=== PATIENT | male | born 1970 | race Caucasian/White ===

== ENCOUNTER 2017-06-29 19:02 | Emergency (ER) ==
[2017-06-29 19:05] VITALS: BP 144/77; BMI 29.2
--- NOTE | 2017-06-29 19:41 | ED.PDOC ---
General ED Provider: Dr. SAHARA HSIEH Chief Complaint: Respiratory Complaint Stated Complaint: patient is a 47 year old male who comes to the ER with c/o cough, fever, chills and weakness. states cough is occasionally prod of thick green phlegm. states throat is a little sore. c/o bodyaches. Time Seen by Physician: 19:34 Mode of Arrival: Walk-In Information Source: Patient Primary Care Provider: DEWAYNE PLASENCIA Nursing and Triage Documentation Reviewed and Agree: Yes Reviewed sepsis parameters & appropriate labs ordered?: Yes System Inflammatory Response Syndrome: Temp 101F or Greater, Pulse >90 BPM Sepsis Protocol: For patient's 13 years and over: Temp is 96.8 and below OR 101 and greater Pulse >90 BPM Resp >20/minute Acutely Altered Mental Status Are patient's symptoms suggestive of a new infection, such as: -Pneumonia -Skin, Soft Tissue -Endocarditis -UTI -Bone, Joint Infection -Implantable Device -Acute Abdominal Infection -Wound Infection -Meningitis -Blood Stream Catheter Infection -Unknown System Inflammatory Response Syndrome: Not Applicable Respiratory Complaint Exam - Respiratory Complaint/Exam Onset/Duration: 5 days Symptoms Are: Still present Timing: Constant Initial Severity: Mild Current Severity: Moderate Location: Chest Character: Reports: Productive cough Aggravating: Reports: URI, Weather Alleviating: Reports: None Associated Signs and Symptoms: Reports: Fever, Chills, URI, Sore throat, Increased thirst. Denies: Chest pain Related Surgical History: Reports: None Pulmonary Embolism Risk Factors: None Cardiac Risk Factors: Reports: None Pseudomonas Risk Factors: Reports: None Tuberculosis Risk Factors: Reports: None Status Asthmaticus Risk Factors: Reports: None Recent Stress Test: No Recent Echo/LV Function: No Current Antibiotic Use: No Current Asthma Medication Use: No Respiratory Distress: None Inadequate Respiratory Effort: No Dysphagia Present: No Stridor Present: No JVD Present: No Accessory Muscle Use: No Grunting Respirations: No Kussmaul Respirations: No Differential Diagnoses: Pneumonia, Bronchitis, Influenza Review of Systems - Review Of Systems Constitutional: Reports: Chills, Fever, Sweats, Loss of appetite Eyes: Reports: No symptoms Ears, Nose, Mouth, Throat: Reports: No symptoms Respiratory: Reports: Cough Cardiac: Reports: Lightheadedness GI: Reports: No symptoms : Reports: No symptoms Musculoskeletal: Reports: No symptoms Skin: Reports: No symptoms Neurological: Reports: No symptoms Endocrine: Reports: No symptoms Hematologic/Lymphatic: Reports: No symptoms All Other Systems: Reviewed and Negative Past Medical History - Past Medical History Previously Healthy: No Endocrine: Reports: Dyslipidemia Cardiovascular: Reports: Hypertension Respiratory: Reports: None Hematological: Reports: None Gastrointestinal: Reports: None Genitourinary: Reports: None Neuro/Psych: Reports: None Musculoskeletal: Reports: Arthritis Cancer: Reports: None - Surgical History General Surgical History: Reports: Orthopedic (right toe amputation), Hernia Repair (left ) - Family History Family History: Reports: None - Social History Smoking Status: Never smoker, Chews tobacco Hx Substance Use: No Alcohol Screening: Occasionally Physical Exam - Physical Exam Appearance: Ill-appearing Ill-appearing: Moderate Pain Distress: Mild Eyes: GIBSON, EOMI, Conjunctiva clear ENT: Ears normal, Nose normal, Oropharynx normal Neck: Supple Respiratory: Breath sounds diminished Cardiovascular: Tachycardia GI/: Soft Neurological: Sensation intact, Motor intact, Alert, Oriented Psychiatric: Anxious Interpretation - Radiology Interpretation Radiology Interpretation By: Radiologist Radiology Results: Negative Exam Interpreted: CXR Critical Care Note - Critical Care Note Total Time (mins): 0 Comments: Declined to get IV Fluids and get strep test. Course - Course Hematology/Chemistry: 06/29/17 19:52 06/29/17 19:52 Orders, Labs, Meds: Lab Review 06/29/17 06/29/17 06/29/17 19:50 19:52 19:52 WBC 13.17 H RBC 4.54 L Hgb 13.5 L Hct 38.1 L MCV 83.9 MCH 29.7 MCHC 35.4 RDW Coeff of Marybeth 13.0 Plt Count 231 Immature Gran % (Auto) 0.3 Neut % (Auto) 79.0 Lymph % (Auto) 12.0 [place] % (Auto) 6.2 Eos % (Auto) 2.2 Baso % (Auto) 0.3 Immature Gran # (Auto) 0.0 Neut # (Auto) 10.4 H Lymph # (Auto) 1.6 [place] # (Auto) 0.8 Eos # (Auto) 0.3 Baso # (Auto) 0.0 Sodium 136 Potassium 4.1 Chloride 101 Carbon Dioxide 19 L Anion Gap 20.1 BUN 18 Creatinine 1.12 H Estimated GFR (MDRD) 71.00 BUN/Creatinine Ratio 16.07 Glucose 97 Lactic Acid Calcium 9.4 Total Bilirubin 0.5 AST 39 H ALT 83 H Alkaline Phosphatase 60 Total Protein 7.5 Albumin 4.3 Globulin 3.2 Albumin/Globulin Ratio 1.34 Procalcitonin Influ A Molecular Assay Negative by naat Influ B Molecular Assay Negative by naat 06/29/17 06/29/17 19:52 19:52 WBC RBC Hgb Hct MCV MCH MCHC RDW Coeff of Marybeth Plt Count Immature Gran % (Auto) Neut % (Auto) Lymph % (Auto) [place] % (Auto) Eos % (Auto) Baso % (Auto) Immature Gran # (Auto) Neut # (Auto) Lymph # (Auto) [place] # (Auto) Eos # (Auto) Baso # (Auto) Sodium Potassium Chloride Carbon Dioxide Anion Gap BUN Creatinine Estimated GFR (MDRD) BUN/Creatinine Ratio Glucose Lactic Acid 16.0 Calcium Total Bilirubin AST ALT Alkaline Phosphatase Total Protein Albumin Globulin Albumin/Globulin Ratio Procalcitonin 0.25 Influ A Molecular Assay Influ B Molecular Assay Orders Category Date Time Status ED IV/MEDIPORT/POWERPORT .ONCE EMERGENCY 06/29/17 19:44 Active BLOOD CULTURE (ED ONLY) Stat LAB 06/29/17 19:52 Received CBC W/ AUTO DIFF Stat LAB 06/29/17 19:52 Completed COMPREHENSIVE METABOLIC PANEL Stat LAB 06/29/17 19:52 Completed FLU A/B MOLECULAR Stat LAB 06/29/17 19:50 Completed LACTIC ACID Stat LAB 06/29/17 19:52 Completed PROCALCITONIN Stat LAB 06/29/17 19:52 Completed 0.9 % Sodium Chloride [Saline Flush] MEDS 06/29/17 19:44 Discontinued 1 syr IVF PRN PRN Acetaminophen [Tylenol] MEDS 06/29/17 19:44 Discontinued 650 mg PO ONCE STA Ceftriaxone Sodium [Rocephin] MEDS 06/29/17 20:50 Discontinued 1 gm IM ONCE STA Lidocaine HCl/Pf [Lidocaine HCl 1% Sdv] MEDS 06/29/17 20:50 Discontinued 2.1 ml IM ONCE STA Methylprednisolone Sod Succ/Pf [Solu-Medrol 125 mg] MEDS 06/29/17 20:47 Discontinued 125 mg IM ONCE STA Sodium Chloride 0.9% [Sodium Chloride] 1,000 ml MEDS 06/29/17 19:42 Discontinued IV BOLUS CHEST, 2 VIEWS PA & LAT Stat RADS 06/29/17 19:36 Completed Medications Discontinued Medications Generic Name Dose Route Start Last Admin Trade Name Shana PRN Reason Stop Dose Admin Acetaminophen 650 mg 06/29/17 19:44 06/29/17 20:31 Tylenol PO 06/29/17 19:45 650 mg ONCE STA Administration Ceftriaxone Sodium 1 gm 06/29/17 20:50 06/29/17 21:04 Rocephin IM 06/29/17 20:51 1 gm ONCE STA Administration Sodium Chloride 1,000 mls @ 1,000 mls/hr 06/29/17 19:42 Sodium Chloride IV 06/29/17 20:41 BOLUS STA Lidocaine HCl 2.1 ml 06/29/17 20:50 06/29/17 21:04 Lidocaine Hcl 1% Sdv IM 06/29/17 20:51 2.1 ml ONCE STA Administration Methylprednisolone Sodium Succinate 125 mg 06/29/17 20:47 06/29/17 21:04 Solu-Medrol 125 Mg IM 06/29/17 20:48 125 mg ONCE STA Administration Sodium Chloride 1 syr 06/29/17 19:44 Saline Flush IVF PRN PRN To flush IV Vital Signs: Temp Pulse Resp BP Pulse Ox 06/29/17 20:52 100.8 F H 06/29/17 19:03 101.2 F H 107 H 16 144/77 H 95 Departure - Departure Time of Disposition: 21:30 Disposition: HOME SELF-CARE Discharge Problem: Bronchitis Instructions: Acute Bronchitis (ED) Condition: Stable Pt referred to PMD for follow-up: Yes IPMP verified?: No Additional Instructions: Take Medication as prescribed Follow up with PCP iin 3 days Prescriptions: Amoxicillin/Potassium Clav [Augmentin 875-125 mg Tab] 1 tab PO Q12HR #20 tablet Benzonatate [Tessalon Perles] 100 mg PO TID PRN #15 capsule PRN Reason: Cough Methylprednisolone [Medrol Dosepak] 4 mg PO DIRECTED #1 pkg Allergies/Adverse Reactions: Allergies No Known Allergies Allergy (Verified 06/29/17 19:05) Home Medications: Ambulatory Orders Multivitamin 1 each PO DAILY 01/08/14 Lisinopril 20 mg PO DAILY 09/25/15 Amoxicillin/Potassium Clav [Augmentin 875-125 mg Tab] 1 tab PO Q12HR #20 tablet 06/29/17 Benzonatate [Tessalon Perles] 100 mg PO TID PRN #15 capsule 06/29/17 Cetirizine HCl [Zyrtec] 10 mg PO DAILY 06/29/17 Hydrocodone Bit/Acetaminophen [[place] 7.5-325] 1 tab PO TID 06/29/17 Methylprednisolone [Medrol Dosepak] 4 mg PO DIRECTED #1 pkg 06/29/17 Disposition Discussed With: Patient, Family
[2017-06-29] MEDS ORDERED: SODIUM CHLORIDE 1,000 ML IV STA (19:42)
[2017-06-29] MEDS ORDERED: TYLENOL PO STA (19:44)
--- NOTE | 2017-06-29 19:53 | DI ---
Exam: Two x-rays of the chest. Comparison: 09/25/2015 Reason for exam: Cough. FINDINGS: No pneumothorax, pleural effusion, or focal consolidation. The cardiac silhouette is not enlarged. The imaged osseous structures appear grossly unremarkable without acute fracture. Impression: No acute cardiopulmonary process.
[2017-06-29] MEDS ORDERED: SOLU-MEDROL 125 MG IM STA (20:47)
[2017-06-29] MEDS ORDERED: LIDOCAINE HCL 1% SDV IM STA (20:50)
[2017-06-29] MEDS ORDERED: ROCEPHIN IM STA (20:50)
[2017-06-29 20:53] VITALS: TEMP 100.8
== END 2017-06-29 21:22 | disposition home or self-care (01) ==
LOC: ED 19:02
DX: J40 Bronchitis, not specified as acute or chronic (principal); Z72.0 Tobacco use
CPT/HCPCS: 36415; 80053; 83605; 84145; 85025; 87040; 87502; 96372; 99283

== ENCOUNTER 2017-07-24 18:19 | Emergency (ER) ==
[2017-07-24 18:24] VITALS: TEMP 97.6; BMI 29.9
[2017-07-24 18:53] VITALS: BP 118/73
[2017-07-24] MEDS ORDERED: ASPIRIN CHEWABLE PO STA (19:28)
--- NOTE | 2017-07-24 19:32 | ED.PDOC ---
General ED Provider: Dr. WAQAR CLEIS Chief Complaint: Chest Pain Stated Complaint: came for the left side chest discomfort, since morning, whole left side of the body is hurting. not short of breath, not exertional. Time Seen by Physician: 19:30 Mode of Arrival: Walk-In Information Source: Patient Primary Care Provider: DEWAYNE PLASENCIA Nursing and Triage Documentation Reviewed and Agree: Yes Reviewed sepsis parameters & appropriate labs ordered?: No System Inflammatory Response Syndrome: Not Applicable Sepsis Protocol: For patient's 13 years and over: Temp is 96.8 and below OR 101 and greater Pulse >90 BPM Resp >20/minute Acutely Altered Mental Status Are patient's symptoms suggestive of a new infection, such as: -Pneumonia -Skin, Soft Tissue -Endocarditis -UTI -Bone, Joint Infection -Implantable Device -Acute Abdominal Infection -Wound Infection -Meningitis -Blood Stream Catheter Infection -Unknown Cardiovascular Complaint Exam - Chest Pain Complaint/Exam Onset: Gradual Symptoms Are: Resolved Timing: Intermittent Initial Severity: Moderate Current Severity: None Location: Reports: Left anterior Pain Radiates: Reports: None Character: Reports: Dull, Aching Aggravating: Reports: None Alleviating: Reports: None Associated Signs and Symptoms: Reports: Nausea. Denies: Diaphoresis, Vomiting, Fever, Palpitations, Cough, Hemoptysis, Back pain, Abdominal pain, Dizziness, Short of air, Calf pain, Calf swelling Related Surgical History: Reports: None History of Healthcare-Acquired Pneumonia: Reports: No AMI/ACS Risk Factors: Reports: None TAD Risk Factors: Reports: Hypertension, Family history Pulmonary Embolism Risk Factors: Reports: None Prior Care for this Complaint: No Recent Stress Test: No Recent Echo/LV Function: No JVD Present: No Subcutaneous Emphysema Present: No Diminshed Breath Sounds: No Reproducible Chest Wall Pain: No Bilateral Pulses Present: No Unequal Pulses Noted: No If Risk Factors for AMI/ACS Consider: EKG, Cardiac Enzymes, Serial Studies, Oxygen, Aspirin Differential Diagnoses: ACS, Chest Wall Pain, GI Diseasae Quality Indicators For Acute NM or Cardiac Chest Pain: EKG in 10min., ASA if indicated Review of Systems - Review Of Systems Constitutional: Reports: No symptoms Eyes: Reports: No symptoms Ears, Nose, Mouth, Throat: Reports: No symptoms Respiratory: Reports: No symptoms Cardiac: Reports: Chest pain GI: Reports: No symptoms : Reports: No symptoms Musculoskeletal: Reports: No symptoms Skin: Reports: No symptoms Neurological: Reports: No symptoms Endocrine: Reports: No symptoms Hematologic/Lymphatic: Reports: No symptoms All Other Systems: Reviewed and Negative Past Medical History - Past Medical History Previously Healthy: No Endocrine: Reports: Dyslipidemia Cardiovascular: Reports: Hypertension Respiratory: Reports: None Hematological: Reports: None Gastrointestinal: Reports: None Genitourinary: Reports: None Neuro/Psych: Reports: None Musculoskeletal: Reports: Arthritis Cancer: Reports: Skin (melanoma) - Surgical History General Surgical History: Reports: Orthopedic (right toe amputation), Hernia Repair (left ) - Family History Family History: Reports: None - Social History Smoking Status: Never smoker, Chews tobacco Hx Substance Use: Yes (QUIT DRINKING FOR 2 MONTHS) Alcohol Screening: None Physical Exam - Physical Exam Appearance: Well-appearing, No pain distress, Well-nourished Eyes: GIBSON, EOMI, Conjunctiva clear ENT: Ears normal, Nose normal, Oropharynx normal Respiratory: Airway patent, Breath sounds clear, Breath sounds equal, Respirations nonlabored Cardiovascular: RRR, Pulses normal, No rub, No murmur GI/: Soft, Nontender, No masses, Bowel sounds normal, No Organomegaly Musculoskeletal: Normal strength, ROM intact, No edema, No calf tenderness Skin: Warm, Dry, Normal color Neurological: Sensation intact, Motor intact, Reflexes intact, Cranial nerves intact, Alert, Oriented Psychiatric: Affect appropriate, Mood appropriate Interpretation - Radiology Interpretation Radiology Interpretation By: ED Physician Radiology Results: Negative Exam Interpreted: CXR - Medical Coding Technician Time of Medical Coding Technician Interpretation: 20:00 Rate: Normal Rhythm: Sinus Ectopy: None Critical Care Note - Critical Care Note Total Time (mins): 30 Course - Course Hematology/Chemistry: 07/24/17 18:44 07/24/17 18:44 Orders, Labs, Meds: Lab Review 07/24/17 07/24/17 18:44 18:44 WBC 8.11 RBC 4.45 L Hgb 13.1 L Hct 37.9 L MCV 85.2 MCH 29.4 MCHC 34.6 RDW Coeff of Marybeth 13.1 Plt Count 275 Immature Gran % (Auto) 0.2 Neut % (Auto) 52.1 Lymph % (Auto) 36.5 [place] % (Auto) 7.2 Eos % (Auto) 3.3 Baso % (Auto) 0.7 Immature Gran # (Auto) 0.0 Neut # (Auto) 4.2 Lymph # (Auto) 3.0 [place] # (Auto) 0.6 Eos # (Auto) 0.3 Baso # (Auto) 0.1 Sodium 139 Potassium 4.0 Chloride 104 Carbon Dioxide 20 L Anion Gap 19.0 BUN 17 Creatinine 1.06 Estimated GFR (MDRD) 75.00 BUN/Creatinine Ratio 16.03 Glucose 93 Calcium 9.7 Total Bilirubin 0.4 AST 42 H ALT 94 H Alkaline Phosphatase 52 Total Creatine Kinase 287 CK-MB (CK-2) 2.0 CK-MB (CK-2) % 0.99187 Troponin I < 0.0100 Total Protein 7.6 Albumin 4.5 Globulin 3.1 Albumin/Globulin Ratio 1.45 Orders Category Date Time Status EKG-(ED ONLY) Stat CARDIO 07/24/17 18:49 Completed CBC W/ AUTO DIFF Stat LAB 07/24/17 18:44 Completed COMPREHENSIVE METABOLIC PANEL Stat LAB 07/24/17 18:44 Completed CREATINE KINASE Stat LAB 07/24/17 18:44 Completed TROPONIN I Stat LAB 07/24/17 18:44 Completed Aspirin [Aspirin Chewable] MEDS 07/24/17 19:28 Discontinued 324 mg PO ONCE STA Dexamethasone 4 mg/ml Inj [Decadron 4 mg/ml Sdv] MEDS 07/24/17 20:32 Discontinued 4 mg IM ONCE STA CHEST, 2 VIEWS PA & LAT Stat RADS 07/24/17 19:28 Taken Medications Discontinued Medications Generic Name Dose Route Start Last Admin Trade Name Freq PRN Reason Stop Dose Admin Aspirin 324 mg 07/24/17 19:28 07/24/17 19:45 Aspirin Chewable PO 07/24/17 19:29 324 mg ONCE STA Administration Dexamethasone Sodium Phosphate 4 mg 07/24/17 20:32 Decadron 4 Mg/Ml Sdv IM 07/24/17 20:33 ONCE STA Vital Signs: Temp Pulse Resp BP Pulse Ox 07/24/17 18:53 75 20 118/73 98 07/24/17 18:21 97.6 F 81 20 123/88 97 DELFINA Risk Score Age >/= 65: No >/= 3 CAD Risk Factors: Yes Known CAD (Stenosis >/= 50%): No ASA Use in Past 7 Days: No Severe Angina (>/= 2 episodes in 24 hours): No EKG ST Changes >/= 0.5mm: No Postive Cardiac Marker: No DELFINA Total Score: 1 DELFINA Risk Score: Risk Score Odds of by 30D 0 0.1 (0.1-0.2) 1 0.3 (0.2-0.3) 2 0.4 (0.3-0.5) 3 0.7 (0.6-0.9) 4 1.2 (1.0-1.5) 5 2.2 (1.9-2.6) 6 3.0 (2.5-3.6) 7 4.8 (3.8-6.1) Departure - Departure Time of Disposition: 20:33 Disposition: HOME SELF-CARE Discharge Problem: Chest pain Instructions: Chest Pain (ED) Condition: Stable Pt referred to PMD for follow-up: Yes IPMP verified?: No Additional Instructions: life style modifications f/u with PMD for further evaluation Allergies/Adverse Reactions: Allergies No Known Allergies Allergy (Verified 07/24/17 18:25) Home Medications: Ambulatory Orders Multivitamin 1 each PO DAILY 01/08/14 Lisinopril 20 mg PO DAILY 09/25/15 Cetirizine HCl [Zyrtec] 10 mg PO DAILY 06/29/17 Hydrocodone Bit/Acetaminophen [[place] 7.5-325] 1 tab PO TID 06/29/17 Transfer Form Completed: Yes
[2017-07-24] MEDS ORDERED: DECADRON 4 MG/ML SDV IM STA (20:32)
--- NOTE | 2017-07-25 07:43 | DI ---
EXAM: CHEST FRONTAL AND LATERAL VIEWS HISTORY: Chest pain. COMPARISON: 06/29/2017 FINDINGS: Heart size and mediastinal contour remain within normal limits. Heart size is normal. Q uestionable mild aortic atherosclerosis. A few micro nodules are seen in the lateral mid left lung w hich are most suggestive of calcified granulomas given their density. No acute infiltrates are seen. No vascular congestion. There is no consolidation, visible pleural fluid or pneumothorax. Bones re veal no acute fracture. IMPRESSION: No acute cardiopulmonary process.
== END 2017-07-24 20:46 | disposition home or self-care (01) ==
LOC: ED 18:19
DX: R07.9 Chest pain, unspecified (principal); E78.5 Hyperlipidemia, unspecified; I10 Essential (primary) hypertension; Z72.0 Tobacco use
CPT/HCPCS: 36415; 80053; 82550; 82553; 84484; 85025; 93005; 93010; 99283

== ENCOUNTER 2017-12-31 02:32 | Emergency (ER) ==
[2017-12-31 02:47] VITALS: BMI 28.8
[2017-12-31] MEDS ORDERED: LOMOTIL PO STA (03:27)
[2017-12-31] MEDS ORDERED: ZOFRAN ODT PO STA (03:27)
[2017-12-31] MEDS ORDERED: LACTATED RINGERS 1,000 ML IV STA (03:27)
[2017-12-31] MEDS ORDERED: DILAUDID 1 MG/ML SYRINGE IVP STA (03:34)
[2017-12-31] MEDS ORDERED: BENTYL IM STA (03:34)
--- NOTE | 2017-12-31 03:35 | ED.PDOC ---
General ED Provider: Dr. SAHARA HSIEH Chief Complaint: Abdominal Pain Stated Complaint: Patient complains of Diarrhea stools x 10 since last night. Also complains of dissuse abdominal pain and cramping x 3 days. Also had vomting x 2 tonight. Denies any blood in emesis and denies any Bright red blood per rectum. He was seen at [facility] for chest pain. has a history of back pain goes to pain managment and gets [place] 90 tabs every month. Time Seen by Physician: 03:28 Mode of Arrival: Walk-In Information Source: Patient Primary Care Provider: DEWAYNE PLASENCIA Nursing and Triage Documentation Reviewed and Agree: Yes Does patient meet sepsis criteria?: No System Inflammatory Response Syndrome: Not Applicable Sepsis Protocol: For patient's 13 years and over: Temp is 96.8 and below OR 101 and greater Pulse >90 BPM Resp >20/minute Acutely Altered Mental Status Are patient's symptoms suggestive of a new infection, such as: -Pneumonia -Skin, Soft Tissue -Endocarditis -UTI -Bone, Joint Infection -Implantable Device -Acute Abdominal Infection -Wound Infection -Meningitis -Blood Stream Catheter Infection -Unknown GI Complaint Exam - Vomiting/Diarrhea Complaint/Exam Onset/Duration: 3 days Symptoms Are: Still present Episodes of Vomiting over last 24 Hours: 10 Episodes of Diarrhea Over Last 24 Hours: 2 Initial Severity: Moderate Current Severity: Severe Character of Vomiting: Reports: Non-bilious Character of Diarrhea: Reports: Watery Aggravating: Reports: Food Alleviating: Reports: Clear liquids Associated Signs and Symptoms: Reports: Abdominal pain, Cramping Last Oral Intake: Just prior to arrival. Last Bowel Movement: During this visit Non-GI Risk Factors: Reports: None Surgical Obstruction Risk Factors: Reports: None Related Surgical History: Reports: None Abdominal Findings: Present: Other (Diffuse abdominal tenderness ). Absent: Rebound tenderness Kussmaul Respirations Present: No Differential Diagnoses: Bowel Obstruction, Cholecystitis, Cholelithiasis, Dehydration, Gastritis, PUD, Viral Gastroenteritis, Bacterial Gastroenteritis, Hepatitis, Pancreatitis, UTI Review of Systems - Review Of Systems Constitutional: Reports: No symptoms Eyes: Reports: No symptoms Ears, Nose, Mouth, Throat: Reports: No symptoms Respiratory: Reports: No symptoms Cardiac: Reports: No symptoms GI: Reports: Abdominal pain, Diarrhea, Nausea, Poor appetite, Vomiting : Reports: No symptoms Musculoskeletal: Reports: No symptoms Skin: Reports: No symptoms Neurological: Reports: No symptoms Endocrine: Reports: No symptoms Hematologic/Lymphatic: Reports: No symptoms All Other Systems: Reviewed and Negative Past Medical History - Past Medical History Previously Healthy: No Endocrine: Reports: Dyslipidemia Cardiovascular: Reports: Hypertension Respiratory: Reports: None Hematological: Reports: None Gastrointestinal: Reports: None Genitourinary: Reports: None Neuro/Psych: Reports: None Musculoskeletal: Reports: Arthritis, Back Pain Cancer: Reports: Skin (melanoma) - Surgical History General Surgical History: Reports: Orthopedic (right toe amputation), Hernia Repair (left ) - Family History Family History: Reports: None - Social History Smoking Status: Never smoker, Chews tobacco, Dips snuff Hx Substance Use: Yes Alcohol Screening: None - Immunizations Tetanus Shot up to Date: Yes Physical Exam - Physical Exam Appearance: Ill-appearing Ill-appearing: Moderate Pain Distress: Severe Neck: Supple Respiratory: Airway patent, Breath sounds clear, Breath sounds equal, Respirations nonlabored Cardiovascular: RRR, Pulses normal, No rub, No murmur GI/: Soft, Tender, Bowel sounds hyperactive Musculoskeletal: Normal strength, ROM intact, No edema, No calf tenderness Skin: Warm, Dry, Normal color Neurological: Sensation intact, Motor intact, Cranial nerves intact, Alert, Oriented Psychiatric: Anxious Interpretation - Radiology Interpretation Radiology Interpretation By: Radiologist Radiology Results: Negative (gastroenteritis vs ileus) Exam Interpreted: CT Scan Critical Care Note - Critical Care Note Total Time (mins): 30 Course - Course Hematology/Chemistry: 12/31/17 03:35 12/31/17 03:35 Orders, Labs, Meds: Lab Review 12/31/17 12/31/17 12/31/17 02:50 03:35 03:35 WBC 15.35 H RBC 4.77 Hgb 14.0 Hct 40.7 L MCV 85.3 MCH 29.4 MCHC 34.4 RDW Coeff of Marybeth 12.8 Plt Count 239 Immature Gran % (Auto) 0.8 Neut % (Auto) 55.5 Lymph % (Auto) 17.1 [place] % (Auto) 4.9 Eos % (Auto) 20.9 H Baso % (Auto) 0.8 Immature Gran # (Auto) 0.1 Neut # (Auto) 8.5 H Lymph # (Auto) 2.6 [place] # (Auto) 0.8 Eos # (Auto) 3.2 H Baso # (Auto) 0.1 Sodium 140.2 Potassium 4.50 Chloride 102.8 Carbon Dioxide 29.4 Anion Gap 12.50 BUN 19.0 Creatinine 1.16 H Estimated GFR (MDRD) 68.00 BUN/Creatinine Ratio 16.37 Glucose 92.6 Calcium 9.39 Total Bilirubin 0.22 AST 30.0 ALT 38.9 Alkaline Phosphatase 51.1 Total Protein 7.43 Albumin 4.27 Globulin 3.16 Albumin/Globulin Ratio 1.35 Amylase 59.6 Lipase 41.8 Urine Color Yellow Urine Clarity Clear Urine pH 5.5 Ur Specific [place] 1.015 Urine Protein Negative Urine Glucose (UA) Negative Urine Ketones Negative Urine Blood Negative Urine Nitrite Negative Urine Bilirubin Negative Urine Urobilinogen 0.2 Ur Leukocyte Esterase Negative Orders Category Date Time Status ED IV/MEDIPORT/POWERPORT .ONCE EMERGENCY 12/31/17 03:26 Active AMYLASE Stat LAB 12/31/17 03:35 Completed CBC W/ AUTO DIFF Stat LAB 12/31/17 03:35 Completed COMPREHENSIVE METABOLIC PANEL Stat LAB 12/31/17 03:35 Completed LIPASE Stat LAB 12/31/17 03:35 Completed STOOL CULTURE Stat LAB 12/31/17 02:50 Results URINALYSIS C & S IF INDICATED Stat LAB 12/31/17 02:50 Completed 0.9 % Sodium Chloride [Saline Flush] MEDS 12/31/17 03:26 Ordered 1 syr IVF PRN PRN Dicyclomine Inj [Bentyl] MEDS 12/31/17 03:34 Discontinued 20 mg IM ONCE STA Diphenoxylate HCl/Atropine [Lomotil] MEDS 12/31/17 03:27 Discontinued 1 tab PO ONCE STA Hydromorphone HCl [Dilaudid 1 mg/ml Syringe] MEDS 12/31/17 03:34 Discontinued 1 mg IVP ONCE STA Ondansetron [Zofran Odt] MEDS 12/31/17 03:27 Discontinued 4 mg PO ONCE STA Ringers Lactated Solution [Lactated Ringers] 1,000 ml MEDS 12/31/17 03:[address] ABD/PEL WO RENAL STONE PROT Stat RADS 12/31/17 03:35 Completed Medications Generic Name Dose Route Start Last Admin Trade Name Freq PRN Reason Stop Dose Admin Sodium Chloride 1 syr 12/31/17 03:26 Saline Flush IVF PRN PRN To flush IV Discontinued Medications Generic Name Dose Route Start Last Admin Trade Name Shana PRN Reason Stop Dose Admin Dicyclomine HCl 20 mg 12/31/17 03:34 12/31/17 03:57 Bentyl IM 12/31/17 03:35 20 mg ONCE STA Administration Diphenoxylate HCl/Atropine 1 tab 12/31/17 03:27 12/31/17 03:54 Lomotil PO 12/31/17 03:28 1 tab ONCE STA Administration Hydromorphone HCl 1 mg 12/31/17 03:34 12/31/17 03:48 Dilaudid 1 Mg/Ml Syringe IVP 12/31/17 03:35 1 mg ONCE STA Administration Lactated Ringer's 1,000 mls @ 1,000 mls/hr 12/31/17 03:27 12/31/17 03:45 Lactated Ringers IV 12/31/17 04:26 1,000 mls/hr BOLUS STA Administration Ondansetron HCl 4 mg 12/31/17 03:27 12/31/17 03:55 Zofran Odt PO 12/31/17 03:28 4 mg ONCE STA Administration Vital Signs: Temp Pulse Resp BP Pulse Ox 12/31/17 02:32 97.9 F 83 20 149/97 H 98 Departure - Departure Time of Disposition: 04:32 Disposition: HOME SELF-CARE Discharge Problem: Gastroenteritis and colitis, viral Instructions: Gastroenteritis (ED) Condition: Stable Pt referred to PMD for follow-up: Yes IPMP verified?: No Additional Instructions: Push fluids Take Medications as prescribed Follow up with PCP in 3 days. Prescriptions: Dicyclomine HCl [Bentyl] 10 mg PO TID PRN #20 capsule PRN Reason: Abdominal Pain Diphenoxylate HCl/Atropine [Lomotil 2.5-0.025 mg Tablet] 1 each PO TID PRN #20 tablet PRN Reason: Diarrhea Ondansetron HCl [Zofran Tab] 4 mg PO Q8H PRN #14 tablet PRN Reason: Nausea / Vomiting Allergies/Adverse Reactions: Allergies No Known Allergies Allergy (Verified 12/31/17 02:47) Home Medications: Ambulatory Orders Multivitamin 1 each PO DAILY 01/08/14 Lisinopril 20 mg PO DAILY 09/25/15 Hydrocodone Bit/Acetaminophen [[place] 7.5-325] 1 tab PO TID 06/29/17 Dicyclomine HCl [Bentyl] 10 mg PO TID PRN #20 capsule 12/31/17 Diphenoxylate HCl/Atropine [Lomotil 2.5-0.025 mg Tablet] 1 each PO TID PRN #20 tablet 12/31/17 Loratadine [Claritin] 10 mg PO DAILY 12/31/17 Ondansetron HCl [Zofran Tab] 4 mg PO Q8H PRN #14 tablet 12/31/17 Disposition Discussed With: Patient
--- NOTE | 2017-12-31 04:25 | CT ---
EXAM: CT scan abdomen pelvis without contrast HISTORY: Abdominal pain with diffuse cramping COMPARISON: None. FINDINGS: Contiguous axial images obtained through the abdomen pelvis without contrast utilizing 3-m m collimation. Sagittal and coronal reconstructions were imaged and reviewed.. There is calcified g ranuloma at the left lung base. The gallbladder is fluid filled without cholelithiasis. The liver, pancreas, spleen and adrenal glands have normal unenhanced CT appearance. The kidneys are morphologi max normal. Atherosclerotic changes are seen involving the aorta without aneurysm formation. Ther e is a small umbilical hernia containing only fat. The prostate gland is normal in size. The bladde r is unremarkable. There is a normal appendix. There are prominent air and fluid filled loops of sma ll bowel which may be related to ileus versus gastroenteritis.. Bone windows reveals no evidence of lytic or blastic lesions. IMPRESSION: Prominent small bowel suggestive of ileus versus gastroenteritis. Normal appendix. No free fluid or inflammatory changes. Small umbilical hernia containing only fat.
[2017-12-31 04:49] VITALS: BP 110/75; TEMP 98.4
== END 2017-12-31 04:52 | disposition home or self-care (01) ==
LOC: ED 02:32
DX: A08.4 Viral intestinal infection, unspecified (principal); Z72.0 Tobacco use
CPT/HCPCS: 36415; 74176; 80053; 81001; 82150; 83690; 85025; 87015; 87045; 87899; 96361; 96374; 99283

== ENCOUNTER 2018-07-04 14:38 | Emergency (ER) ==
[2018-07-04 14:38] VITALS: BMI 28.8
[2018-07-04 14:47] VITALS: BP 125/85; TEMP 98.2
--- NOTE | 2018-07-04 15:20 | ED.PDOC ---
General ED Provider: Dr. KHALIDA DUGGAN Chief Complaint: Chest Pain Stated Complaint: Chest pain; pain between shoulders Time Seen by Physician: 14:45 Mode of Arrival: Walk-In Information Source: Patient Primary Care Provider: DEWAYNE PLASENCIA Nursing and Triage Documentation Reviewed and Agree: Yes Does patient meet sepsis criteria?: No System Inflammatory Response Syndrome: Not Applicable Sepsis Protocol: For patient's 13 years and over: Temp is 96.8 and below OR 101 and greater Pulse >90 BPM Resp >20/minute Acutely Altered Mental Status Are patient's symptoms suggestive of a new infection, such as: -Pneumonia -Skin, Soft Tissue -Endocarditis -UTI -Bone, Joint Infection -Implantable Device -Acute Abdominal Infection -Wound Infection -Meningitis -Blood Stream Catheter Infection -Unknown Review of Systems - Review Of Systems Constitutional: Reports: Malaise Respiratory: Reports: No symptoms Cardiac: Reports: Chest pain GI: Reports: No symptoms : Reports: No symptoms Neurological: Reports: No symptoms All Other Systems: Reviewed and Negative Past Medical History - Past Medical History Previously Healthy: No Endocrine: Reports: Dyslipidemia Cardiovascular: Reports: Hypertension Respiratory: Reports: None Hematological: Reports: None Gastrointestinal: Reports: None Genitourinary: Reports: None Neuro/Psych: Reports: None Musculoskeletal: Reports: Arthritis, Back Pain Cancer: Reports: Skin (melanoma) - Surgical History General Surgical History: Reports: Orthopedic (right toe amputation), Hernia Repair (left ) - Family History Family History: Reports: None - Social History Smoking Status: Never smoker, Chews tobacco, Dips snuff Hx Substance Use: No Alcohol Screening: None - Immunizations Tetanus Shot up to Date: No Physical Exam - Physical Exam Appearance: Well-appearing, Well-nourished Pain Distress: Mild ENT: Oropharynx normal Neck: Supple Respiratory: Airway patent, Breath sounds clear, Breath sounds equal, Respirations nonlabored Cardiovascular: RRR, Pulses normal GI/: Soft, Nontender Musculoskeletal: Normal strength, ROM intact Skin: Warm, Dry, Normal color Neurological: Sensation intact, Motor intact, Alert, Oriented Psychiatric: Affect appropriate, Mood appropriate Interpretation - EKG Interpretation Time of EKG #1: 14:40 Rate: Normal Rhythm: Sinus Ectopy: None [place]: NL ST Segment: Normal Interpretation: No acute changes Critical Care Note - Critical Care Note Total Time (mins): 35 Comments: EKG, labs, history of cardiac findings, carotid findings, repeated similar episodes, discussion with Primary Care. Patient then refused transfer and declines alternative medical referrals. Course - Course Hematology/Chemistry: 07/04/18 14:45 07/04/18 14:45 Orders, Labs, Meds: Lab Review 07/04/18 07/04/18 07/04/18 14:45 14:45 14:45 WBC 12.81 H RBC 5.07 Hgb 14.8 Hct 43.4 MCV 85.6 MCH 29.2 MCHC 34.1 RDW Coeff of Marybeth 13.2 Plt Count 243 Immature Gran % (Auto) 0.4 Neut % (Auto) 83.9 Lymph % (Auto) 6.8 L [place] % (Auto) 5.8 Eos % (Auto) 2.7 Baso % (Auto) 0.4 Immature Gran # (Auto) 0.1 Neut # (Auto) 10.8 H Lymph # (Auto) 0.9 [place] # (Auto) 0.7 Eos # (Auto) 0.3 Baso # (Auto) 0.1 D-Dimer (Manual) 220.24 Sodium 139.0 Potassium 3.95 Chloride 99.5 Carbon Dioxide 27.2 Anion Gap 16.25 BUN 17.4 Creatinine 1.11 H Estimated GFR (MDRD) 71.00 BUN/Creatinine Ratio 15.67 Glucose 86.4 Calcium 9.60 Total Bilirubin 0.65 AST 37.2 ALT 50.5 H Alkaline Phosphatase 57.2 Troponin I < 0.012 Total Protein 7.91 Albumin 5.19 H Globulin 2.72 Albumin/Globulin Ratio 1.90 Orders Category Date Time Status EKG-(ED ONLY) Stat CARDIO 07/04/18 15:29 Completed CBC W/ AUTO DIFF Stat LAB 07/04/18 14:45 Completed COMPREHENSIVE METABOLIC PANEL Stat LAB 07/04/18 14:45 Completed D-DIMER Stat LAB 07/04/18 14:45 Completed TROPONIN I Stat LAB 07/04/18 14:45 Completed CHEST, 1V AP ONLY Stat RADS 07/04/18 15:30 Completed Vital Signs: Temp Pulse Resp BP Pulse Ox 07/04/18 14:39 98.2 F 88 18 125/85 98 DELFINA Risk Score DELFINA Risk Score: Risk Score Odds of by 30D 0 0.1 (0.1-0.2) 1 0.3 (0.2-0.3) 2 0.4 (0.3-0.5) 3 0.7 (0.6-0.9) 4 1.2 (1.0-1.5) 5 2.2 (1.9-2.6) 6 3.0 (2.5-3.6) 7 4.8 (3.8-6.1) Departure - Departure Time of Disposition: 18:00 Disposition: AMA Discharge Problem: Chest pain Qualifiers: Chest pain type: unspecified Qualified Code(s): R07.9 - Chest pain, unspecified Condition: Stable Pt referred to PMD for follow-up: Yes (Advised to follow up with primary care provider) IPMP verified?: No (No CS being dispensed) Allergies/Adverse Reactions: Allergies No Known Allergies Allergy (Verified 07/04/18 14:41) Home Medications: Ambulatory Orders Multivitamin 1 each PO DAILY 01/08/14 Lisinopril 20 mg PO DAILY 09/25/15 Hydrocodone Bit/Acetaminophen [[place] 7.5-325] 1 tab PO TID 06/29/17 Dicyclomine HCl [Bentyl] 10 mg PO TID PRN #20 capsule 12/31/17 Diphenoxylate HCl/Atropine [Lomotil 2.5-0.025 mg Tablet] 1 each PO TID PRN #20 tablet 12/31/17 Loratadine [Claritin] 10 mg PO DAILY 12/31/17 Ondansetron HCl [Zofran Tab] 4 mg PO Q8H PRN #14 tablet 12/31/17
--- NOTE | 2018-07-04 15:51 | DI ---
EXAM: Chest one view HISTORY: Chest pain COMPARISON: 07/24/2017 TECHNIQUE: Single view of the chest was performed FINDINGS: The lungs are clear. There is no pleural effusion or pneumothorax. The heart is normal i n size. The mediastinal contour is normal. There are no acute abnormalities of the bones. IMPRESSION: No acute cardiopulmonary process.
== END 2018-07-04 18:28 | disposition left against medical advice (07) ==
LOC: ED 14:38
DX: R07.9 Chest pain, unspecified (principal); E78.5 Hyperlipidemia, unspecified; I10 Essential (primary) hypertension; Z72.0 Tobacco use
CPT/HCPCS: 36415; 80053; 84484; 85025; 85379; 93005; 93010; 99284